=== PATIENT | male | born 1970 | race Caucasian/White ===

== ENCOUNTER 2017-03-10 10:08 | Inpatient (IN) | payer BC, OTHER ==
[2017-03-04 08:48] VITALS: BMI 31.0
--- NOTE | 2017-03-04 09:35 | PAT Medication Instructions ---
Service Date Mar 04, 2017. Current Home Medication List Acetaminophen (Tylenol Arthritis Ext Rel), 650 MG PO Q8H PRN for Pain Ranitidine Hcl (Zantac), 150 MG PO BID Medication Instructions For Your Scheduled Surgery - Take the following medications the morning of surgery with a sip of water: Acetaminophen (Tylenol Arthritis Ext Rel), 650 MG PO Q8H PRN for Pain (if needed) Ranitidine Hcl (Zantac), 150 MG PO BID - Take the following medications as scheduled the night before surgery: Acetaminophen (Tylenol Arthritis Ext Rel), 650 MG PO Q8H PRN for Pain Ranitidine Hcl (Zantac), 150 MG PO BID If you have any questions please call us at [phone] or [phone] ( [place]) or [phone]
--- NOTE | 2017-03-04 10:24 | DIAGNOSTIC IMAGING REPORT ---
TWO VIEW CHEST CLINICAL HISTORY: Preoperative examination. FINDINGS: PA and lateral chest radiographs are compared to study dated 01/14/2007. The cardiomediastinal silhouette is unremarkable. Chronic scarring is again seen at the left lung base. The lungs and pleural spaces are otherwise clear. There is no pneumothorax. The bony thorax appears intact. IMPRESSION: No active disease in the chest. Electronically signed by: Jc Chowdary M.D. 03/04/2017 10:23 AM Dictated Date/Time: 03/04/2017 10:22 AM
[2017-03-04 10:42] LABS: BASO % 0.4 %; BASO ABS # 0.03 K/uL (0-0.2); COMPLETE YES; HEMATOCRIT 47.3 % (42-52); IG% 0.3 %; LYMPH % 26.9 %; LYMPH ABS # 1.95 K/uL (1.2-3.4); MEAN CELL VOLUME 88.7 fL (80-100); MEAN CORPUSCULAR HEMOGLOBIN 30.6 pg (25-34); MEAN CORPUSCULAR HGB CONC 34.5 g/dl (32-36); MEAN PLATELET VOLUME 9.5 fL (7.4-10.4); MONO % 8.4 %; PLATELET COUNT 231 K/uL (130-400); RED BLOOD COUNT 5.33 M/uL (4.7-6.1); WHITE BLOOD COUNT 7.25 K/uL (4.8-10.8)
[2017-03-04 10:50] LABS: INR 1.1 (0.9-1.1); PARTIAL THROMBOPLASTIN RATIO 1.2; PROTHROMBIN TIME (PATIENT) 11.3 SECONDS (9.0-12.0)
[2017-03-04 10:57] LABS: BUN/CREATININE RATIO 29.9 (10-20); CREATININE 0.68 mg/dl (0.60-1.40); POTASSIUM 3.7 mmol/L (3.5-5.1)
[2017-03-04 11:00] LABS: CALCIUM 9.4 mg/dl (8.5-10.1)
--- NOTE | 2017-03-06 10:31 | HISTORY & PHYSICAL EXAMINATION ---
DATE OF ADMISSION: 03/10/2017 CHIEF COMPLAINT: Left hip pain and discomfort, stiffness. HISTORY OF PRESENT ILLNESS: The patient is a 47-year-old gentleman from [place] who works as a cook at [employer] who presents for surgical treatment of his left hip. He has a 1-year history of markedly increased left hip pain and discomfort. He has been treated by Dr. Guevara. He has had different medicines as well as injections which provided very temporary relief. He eventually went to [facility]. He was referred to [facility] for possible treatments, but elected to come to [place] for surgical treatment. He describes mostly groin and thigh pain. It radiates to the medial side of his knee. He has trouble doing his job as a cook due to the pain. He cannot put his shoes and socks on. He would like to have his hip replaced. PAST MEDICAL HISTORY: Significant for: 1. Heart murmur. 2. Sleep apnea. 3. Anxiety/depression. 4. Arthritis. 5. Gastroesophageal reflux disease. 6. Obesity, BMI 31. PREVIOUS SURGICAL HISTORY: Include: 1. Double hernia repair. 2. Hydrocele repair. 3. Foot surgery. 4. Right arm surgery. ALLERGIES: CODEINE. REACTION IS UNKNOWN. CURRENT MEDICINES: Include: 1. Meloxicam. 2. Tylenol Arthritis. 3. Jesus Manuel Aspirin. SOCIAL HISTORY: A 47-year-old male from [place]. He is single but has a significant other. He works as a cook. FAMILY HISTORY: Noncontributory. REVIEW OF SYSTEMS: Negative for diabetes, neurologic problems, vascular problems or bleeding disorders. Denies any chest pain or shortness of breath. His medical doctor is Dr. Conner with [facility]. PHYSICAL EXAMINATION: GENERAL: Reveals a pleasant, middle-aged male. He looks to be in reasonably good health. HEAD, EYES, EARS, NOSE, AND THROAT EXAMINATION: Benign. NECK: Supple. No lymphadenopathy. LUNGS: Clear to auscultation. HEART: Has a regular rate and rhythm. ABDOMEN: Soft, nontender, nondistended. EXTREMITY EXAMINATION: Grossly neurovascularly intact except as follows: Examination of left hip and leg reveals the patient walks with antalgic gait. Leg lengths clinically appear pretty equal. Internal rotation to -10. He has got an external rotation contracture. He can externally rotate to about 20. Negative straight leg raise. X-RAYS: X-rays of the left hip were reviewed. It shows advanced left hip DJD. He has got complete loss of the superior joint space. He has got flattening of his femoral head. He has got cystic change in the femoral head and fairly large medial osteophyte. He has got some mild to moderate degenerative change on the right side. X-rays of the left knee from [facility] were reviewed and are normal. ASSESSMENT: A 47-year-old male with advanced left hip degenerative joint disease. It has gotten significantly worse over the past year and really limiting his ability to live an active lifestyle and even work. PLAN: We talked about treatment. He would like to have his left hip replaced. We are going to take him to the operating room and do a left total hip replacement. The risks and benefits of this procedure were explained to the patient including but not limited to DVT, PE, , infection, neurological injury, vascular injury, bleeding problems, pain, limited range of motion, stiffness, failure to relieve symptoms, incomplete relief of symptoms, need for further surgery in the future, fracture, leg length inequality, nerve palsy, dislocation and need for revision. The patient understands and desires to proceed. Informed consent was obtained. The patient did have a preoperative workup. Labs were all normal. The EKG showed sinus bradycardia with an incomplete right bundle branch block. Chest x-ray was normal. We will proceed as above. He is planning to be discharged to home using [facility] home health program.
[~2017-03-10] VITALS: Ht 188 cm; Wt 109.5 kg
[2017-03-10] VITALS (8 sets, daily range): BP systolic 96–128; BP diastolic 63–91; PULSE 64–79; TEMP 36.3–37.1; O2SAT 98–100; Ht 188 cm; Wt 109.5 kg
[~2017-03-10 10:08] MED LIST: ACET1TAB84 PO; ACETAMINOPHEN 500 MG TAB PO SCH; BUPIVACAINE 0.5 % 5 MG/1 ML PF 10ML VIAL ONE; CEFAZOLIN 2000 MG/60 ML D5W 60 ML IV SCH; FAMOTIDINE 20 MG TAB PO SCH; GABAPENTIN 300 MG CAP PO SCH; LACTATED RINGER'S 1000ML 1,000 ML IV SCH; LACTATED RINGER'S 1000ML 500 ML IV ONE; LACTATED RINGER'S 1000ML IV SCH; METOCLOPRAMIDE HCL 10 MG TAB PO SCH; RANI150T3 PO; SCOPOLAMINE 1.5 MG TDSY TD SCH; TRANEXAMIC ACID INJ 1,000 MG in SODIUM CHLORIDE 0.9% 100ML 100 ML IV SCH
[2017-03-10] MEDS ORDERED: EpHEDrine SULFATE INJ 50 MG/ML AMP IV PRN (11:00)
[2017-03-10] MEDS ORDERED: FENTANYL CITRATE INJ 50 MCG/1 ML 2 ML VIAL IV PRN (11:00)
[2017-03-10] MEDS ORDERED: ATROPINE SULFATE 0.1 MG/ML 5ML SYR IV PRN (11:00)
[2017-03-10] MEDS ORDERED: ONDANSETRON INJ 2 MG/ML 2 ML VIAL IV PRN ×2 (11:00→13:45)
--- NOTE | 2017-03-10 11:01 | History & Physical Bridge Note ---
H&P Re-Evaluation Bridge Note: I have examined the patient, reviewed the History & Physical and in the interval since the performance of the History & Physical I have noted the following changes of clinical significance: No changes noted
[2017-03-10] MEDS ORDERED: BACITRACIN 50000 UNIT VIAL ONE (11:14)
[2017-03-10] MEDS ORDERED: BUPIVACAINE/EPINEPHRINE 0.5% MPF 1:200,000 30 ML VIAL ONE (11:14)
[2017-03-10] MEDS ORDERED: MIDAZOLAM HCL 1 MG/ML 2ML VIAL ONE ×2 (11:30→12:01)
[2017-03-10] MEDS ORDERED: LIDOCAINE HCL 2% 2 ML VIAL (20MG/ML) ONE (11:30)
[2017-03-10] MEDS ORDERED: PROPOFOL IV EMULSION 10 MG/ML 20 ML VIAL IV ONE (11:30)
[2017-03-10] MEDS ORDERED: FENTANYL CITRATE INJ 50 MCG/1 ML 2 ML VIAL ONE (11:30)
[2017-03-10] MEDS ORDERED: EpHEDrine SULFATE INJ 50 MG/ML AMP ONE (12:20)
[2017-03-10] MEDS ORDERED: EpHEDrine SULFATE 50MG/5ML SYR ONE (12:20)
[2017-03-10] MEDS ORDERED: PHENYLEPHRINE 100MCG/ML 5ML SYR ONE (13:20)
--- NOTE | 2017-03-10 13:39 | [facility] Post Operative Brief Note ---
Immediate Operative Summary Operative Date March 10, 2017. Pre-Operative Diagnosis Left Hip Degenerative Joint Disease Post-Operative Diagnosis Same as preop Procedure(s) Performed Left total hip arthroplasty uncemented Surgeon Dr. Washington Weigher And Crusher Surgeon(s) Wenceslao Cain PA-C Estimated Blood Loss 400 ml Findings Left Hip DJD Fluids (cc crystalloids) 1700 cc Specimens A. Left Femoral Head Drains None Anesthesia Spinal Complication(s) None Disposition Recovery Room / PACU
[2017-03-10] MEDS ORDERED: METOCLOPRAMIDE HCL INJ 5 MG/ML 2 ML VIAL IV PRN (13:45)
[2017-03-10] MEDS ORDERED: ZOLPIDEM TARTRATE 5 MG TAB PO PRN (13:45)
[2017-03-10] MEDS ORDERED: ALUMINUM/MAGNESIUM/SIMETH (MAALOX MAX) 30 ML UDC PO PRN (13:45)
[2017-03-10] MEDS ORDERED: BISACODYL 10 MG SUPP PR PRN (13:45)
[2017-03-10] MEDS ORDERED: TAMSULOSIN HCL 0.4 MG CAP PO PRN (13:45)
[2017-03-10] MEDS ORDERED: SILVER SULFADIAZINE 1% CR 50 GM JAR EXT PRN (13:45)
[2017-03-10] MEDS ORDERED: MAGNESIUM HYDROXIDE SUSP 30 ML UDC PO PRN (13:45)
[2017-03-10] MEDS ORDERED: DiphenhydrAMINE HCL 50 MG/ML VIAL IV PRN (13:45)
[2017-03-10] MEDS ORDERED: HYDROmorphone INJ 0.5 MG/0.5 ML SYR IV PRN (13:45)
--- NOTE | 2017-03-10 13:51 | Progress Note ---
Progress Note Date of Service March 10, 2017. Progress Note Pt here for L NAE - challenging wu placement secondary to prior hypospadias repair and stricture disease - I probed the urethra with a 6F urethral catheter and successfully guided this into the bladder - a wire was subsequently placed prior to sequential dilation with S-Curve dilators from 10F - 20F - clear urine returned with each pass - stricture felt to be more dense near the base - 16F councill tip catheter then inserted over the wire, initial point of resistance in the mid penile shaft (likely from hypospadias repair) with further (lesser) resistance in the bulb. - clear urine returned - will cover with abx for several days, voiding trial in 48hrs
--- NOTE | 2017-03-10 14:18 | DIAGNOSTIC IMAGING REPORT ---
AP PELVIS AND LEFT HIP 2 VIEWS CLINICAL HISTORY: Degenerative arthritis COMPARISON STUDY: No previous studies for comparison. FINDINGS: There is indwelling Roche catheter. There are postsurgical changes of a total left hip arthroplasty. The acetabular femoral components appear well seated. There are no fractures or dislocations. There is air within soft tissues consistent with recent surgery. There are overlying skin thomas. There are mild osteoarthritic changes within the right hip. IMPRESSION: Postsurgical changes of total left hip arthroplasty. Electronically signed by: David Wiggins M.D. 03/10/2017 2:17 PM Dictated Date/Time: 03/10/2017 2:16 PM
--- NOTE | 2017-03-10 14:33 | Anesthesiology Progress Note ---
Anesthesia Post Op Note Date & Time March 10, 2017 at 14:33 Vital Signs Pain Intensity: 0 Vital Signs Past 12 Hours Date Time Temp Pulse Resp B/P Pulse Ox O2 Delivery O2 Flow Rate FiO2 03/10/17 14:25 36.7 80 16 99/63 99 Nasal Cannula 2 03/10/17 14:15 64 16 102/62 99 Nasal Cannula 2 03/10/17 14:05 71 16 100/64 99 Nasal Cannula 2 03/10/17 13:56 36.6 82 16 119/68 100 Nasal Cannula 2 03/10/17 10:47 36.6 71 20 128/91 98 Room Air Notes Mental Status: alert / awake / arousable, participated in evaluation Pt Amnestic to Procedure: Yes Nausea / Vomiting: adequately controlled Pain: adequately controlled Airway Patency, RR, SpO2: stable & adequate BP & HR: stable & adequate Hydration State: stable & adequate Neuraxial Anesthesia: was administered, sensory block is resolving Anesthetic Complications: no major complications apparent
--- NOTE | 2017-03-10 14:59 | OPERATIVE REPORT ---
DATE OF OPERATION: 03/10/2017 SURGEON: Himanshu Washington MD SPECIAL DUTY NURSE: LOREN Gore PREOPERATIVE DIAGNOSIS: Left hip degenerative joint disease. POSTOPERATIVE DIAGNOSIS: Same. PROCEDURE PERFORMED: Left uncemented ceramic on highly cross-linked polyethylene total hip arthroplasty. COMPLICATIONS: None. ESTIMATED BLOOD LOSS: 400 mL. FLUID REPLACEMENT: 1700 mL crystalloid fluid replacement. ANESTHESIA: Spinal. DRAINS: None. SPECIMENS: Left femoral head sent for pathology. OPERATIVE INDICATIONS: The patient is a 47-year-old gentleman who has had a year history of markedly increasing and progressive discomfort in his left hip. He has been through extensive conservative treatment without adequate relief. This really was affecting his quality of life. X-rays show advanced hip DJD with marked progression over the past year. He elected to proceed with total hip arthroplasty. OPERATIVE FINDINGS: Operative findings revealed advanced left hip DJD. He had moderate size joint effusion. He had grade 4 [id number] disease of the femoral head and acetabulum. OPERATIVE IMPLANTS: Operative implants consisted of: 1. A Biomet G7 size 54-mm acetabular shell. 2. An apex hole eliminator. 3. A 6.5 cancellous acetabular screws, one of 35 mm length and one at 30 mm length. 4. Highly cross-linked polyethylene liner with a 54 mm outer diameter and 36 mm inner diameter. 5. A DePuy size 15 small stature AML femoral stem. 6. A +5/36 mm ceramic articular ball. OPERATIVE PROCEDURE: The patient was taken to the operating room, identified and placed on the operating table in the supine position. All contact areas were appropriately padded. IV antibiotics were provided by the anesthesia team. A spinal anesthetic had been implemented in the holding area. We attempted to place a Roche catheter, but unable to do so. We tried the smallest catheter available without success. Therefore, we consulted urology and they elected to address this at the end of the case. The patient was then placed in the right lateral decubitus position. An axillary roll was placed. Stulberg hip positioner was used for positioning. The patient got preoperative antibiotics. A left hip and leg were then prepped and draped in the usual sterile fashion. A posterolateral approach to the left hip was then performed through a curvilinear incision centered over the greater trochanter. Sharp dissection was carried out through the subcutaneous tissue down to the level of the IT band and gluteal fascia. The IT band and gluteal fascia were incised longitudinally in line with skin incision. The underlying greater trochanteric bursa was excised. The piriformis and external rotators were tagged and taken off the posterior aspect of the hip joint capsule. Great care was taken throughout the procedure to protect the sciatic nerve at all times. Posterior capsulotomy was then performed leaving a large flap for later repair. Hip was internally rotated and dislocated. Femoral neck osteotomy cut was made with the final cut about 10 mm above the lesser trochanter. Femoral head was removed and sent for pathology. The femur was retracted anteriorly. Attention was then drawn to the acetabulum. The acetabular labrum was excised. The pulvinar fat was excised. Sequential reaming of the acetabulum was then performed beginning with a size 45 and progressing up to a 53. A 54-mm Biomet G7 acetabular shell was then placed in about 45 degrees of lateral opening and 20 degrees of anteversion. It was fixed with two 6.5 cancellous acetabular screws. I did remove some anterior acetabular osteophytes. A trial liner was placed. Attention was then drawn to the femur. The proximal femur was entered with cookie cutter followed by canal finder and lateralizing reamer. Sequential reaming of the femur was then performed beginning with a size 10 and progressing up to a 14.5. We got pretty good chatter at 14.5. I broached beginning with a size 10.5 small broach and progressing up to a 15 small. We had trouble getting a 15 small down. Therefore, we elected not to not go to large. A calcar reamer was used to smoothen off the calcar. We then trialed the hip and a +5/36 mm articular ball provided full stability in full extension and external rotation, flexion to 90 degrees, and internal rotation to 50+ degrees. Leg lengths appeared equal. Attention was then drawn toward placing these implants. All trial implants were removed. An apex hole eliminator was placed. Highly cross-linked polyethylene liner was placed. A 15 small stature AML femoral stem was placed. I did ream partway down the canal with a 15 reamer as it was extremely tight on initial implantation. A +5/36 mm ceramic articular ball was placed. Hip was located and once again found to be stable. The wound was irrigated with copious amounts of pulsatile lavage solution. I did inject locally with 30 mL of 0.5% Marcaine with epinephrine. The posterior capsule and external rotators were then repaired through drill holes in the posterior trochanter with #2 Ti-Cron suture. The IT band and gluteal fascia were then closed with #1 PDS suture in running fashion. The subcutaneous tissues were then closed with 2 layers with the deep layer in #1 Vicryl suture and the subcutaneous tissue with 2-0 Dexon suture in a buried interrupted fashion. The skin was closed with skin thomas. Leg was then cleaned and dried and a sterile dressing with Xeroform, 4 x 4, sterile ABD pad and foam tape were applied. The patient was then placed in supine position. Urology/Dr. Adkins then came in and placed a Roche catheter. Once this was placed, the patient was then transferred to the recovery room in stable condition. The patient tolerated the procedure well with no complications. All needle and sponge counts were correct at the end of our operation. The urology procedure will be dictated separately by Dr. Adkins. I attest to the content of the Intraoperative Record and any orders documented therein. Any exceptions are noted below. JOHN
[2017-03-10] MEDS: D5W AND 1/2NSS + 20MEQ KCL 1,000 ML IV SCH ×2 (16:36→23:30)
[2017-03-10] MEDS: CHECK SCOPOLAMINE PATCH PLACEMENT SCH ×2 (16:37→23:38)
[2017-03-10] MEDS: FERROUS GLUCONATE 324 MG TAB PO SCH (17:58)
[2017-03-10] MEDS: KETOROLAC TROMETHAMINE 30 MG/ML VIAL IV. SCH ×2 (17:59→23:30)
[2017-03-10] MEDS ORDERED: NURSING VERBAL MED ORDER ONE (19:45)
[2017-03-10] MEDS: HYDROmorphone INJ 1 MG/ML SYR IV PRN ×2 (20:00→23:33)
[2017-03-10] MEDS ORDERED: TRANEXAMIC ACID INJ 1,000 MG in SODIUM CHLORIDE 0.9% 100ML 100 ML IV ONE (20:00)
[2017-03-10] MEDS: ACETAMINOPHEN 500 MG TAB PO SCH (20:02)
[2017-03-10] MEDS: CEFAZOLIN IV 2,000 MG in DEXTROSE 5% 50ML 50 ML IV SCH (20:54)
[2017-03-10] MEDS: TAPENTADOL ER 50 MG TABCR PO SCH (20:55)
[2017-03-10] MEDS: NITROFURANTOIN MONOHYDRATE 100 MG CAP PO SCH (20:56)
[2017-03-10] MEDS: RANITIDINE HCL 150 MG TAB PO SCH (20:56)
[2017-03-10] MEDS: ASPIRIN 325 MG ECTAB PO SCH (20:56)
[2017-03-10] MEDS: DOCUSATE SODIUM 100 MG CAP PO SCH (20:57)
[2017-03-11] VITALS (7 sets, daily range): BP systolic 95–112; BP diastolic 56–63; PULSE 70–78; TEMP 36.4–37; O2SAT 96–98
[2017-03-11] MEDS: CEFAZOLIN IV 2,000 MG in DEXTROSE 5% 50ML 50 ML IV SCH (03:18)
[2017-03-11] MEDS: HYDROmorphone INJ 1 MG/ML SYR IV PRN ×3 (03:19→15:33)
[2017-03-11] MEDS: ACETAMINOPHEN 500 MG TAB PO SCH ×3 (05:37→21:24)
[2017-03-11] MEDS: KETOROLAC TROMETHAMINE 30 MG/ML VIAL IV. SCH ×3 (05:38→17:49)
[2017-03-11] MEDS: D5W AND 1/2NSS + 20MEQ KCL 1,000 ML IV SCH ×2 (05:38→10:13)
[2017-03-11 06:37] LABS: BASO % 0.1 %; BASO ABS # 0.01 K/uL (0-0.2); COMPLETE YES; EOS % 0.1 %; HEMATOCRIT 36.5 % (42-52); IG% 0.1 %; LYMPH % 11.1 %; LYMPH ABS # 0.94 K/uL (1.2-3.4); MEAN CELL VOLUME 89.7 fL (80-100); MEAN CORPUSCULAR HGB CONC 34.5 g/dl (32-36); MONO % 8.6 %; PLATELET COUNT 169 K/uL (130-400); RED BLOOD COUNT 4.07 M/uL (4.7-6.1); WHITE BLOOD COUNT 8.47 K/uL (4.8-10.8)
[2017-03-11 07:08] LABS: BUN/CREATININE RATIO 14.5 (10-20); CALCIUM 8.2 mg/dl (8.5-10.1); CREATININE 0.79 mg/dl (0.60-1.40); POTASSIUM 3.6 mmol/L (3.5-5.1)
[2017-03-11] MEDS: CHECK SCOPOLAMINE PATCH PLACEMENT SCH ×2 (07:36→15:33)
--- NOTE | 2017-03-11 08:03 | PROGRESS NOTE ---
DATE: 03/11/2017 DATE: 03/11/2017. SUBJECTIVE: A 47-year-old gentleman postop day 1 from a left total hip replacement. Pretty painful night but doing better this morning. No chest pain or shortness of breath. Not feeling dizzy or lightheaded. OBJECTIVE: VITAL SIGNS: Temperature 36.7. Vital signs stable. PHYSICAL EXAMINATION: GENERAL: This is a healthy, pleasant, middle-aged male. He is lying in bed, looks pretty comfortable. EXTREMITIES: Examination of left hip reveals the leg to be well aligned. Hip is located. His thigh is soft and supple. Dressing is clean, dry, and intact. He can dorsiflex and plantarflex his foot appropriately. LABORATORY DATA: Hemoglobin 12.6. Hematocrit 36.5. Electrolytes are stable. ASSESSMENT: A 47-year-old gentleman postop day 1 from left total hip replacement, doing pretty well. Pretty painful last night, but doing better this morning. His hip is located. He is neurologically intact. PLAN: 1. DVT prophylaxis including thigh-high TEDs, SCDs, and aspirin twice a day. 2. PT/OT. Weightbearing as tolerated. Left total hip protocol. 3. Pain control. Doing pretty well with current pain regimen. 4. Disposition. He is hoping to be discharged to home with some home health once adequately recovered.
--- NOTE | 2017-03-11 08:14 | Progress Note ---
Progress Note Date of Service March 11, 2017. Progress Note Tolerating catheter well today urine clear mild L testicular pain appropriate hip related discomfort plan for voiding trial tomorrow AM - covered with nitrofurantoin now, likely for 24 additional hours after wu dc
[2017-03-11] MEDS: FERROUS GLUCONATE 324 MG TAB PO SCH ×3 (08:33→17:49)
[2017-03-11] MEDS: RANITIDINE HCL 150 MG TAB PO SCH ×2 (08:33→21:25)
[2017-03-11] MEDS: ASPIRIN 325 MG ECTAB PO SCH ×2 (08:33→21:25)
[2017-03-11] MEDS: MULTIVITAMIN TAB PO SCH (08:33)
[2017-03-11] MEDS: DOCUSATE SODIUM 100 MG CAP PO SCH ×2 (08:34→21:25)
[2017-03-11] MEDS: NITROFURANTOIN MONOHYDRATE 100 MG CAP PO SCH (08:34)
[2017-03-11] MEDS: TAPENTADOL ER 50 MG TABCR PO SCH ×2 (08:34→21:24)
[2017-03-11] MEDS: HYDROmorphone HCL 2 MG TAB PO PRN (08:34)
[2017-03-11] MEDS: PANTOprazole SOD 40 MG TAB PO SCH (08:34)
--- NOTE | 2017-03-11 10:44 | Anesthesiology Progress Note ---
Anesthesia Post Op Note Date & Time March 11, 2017 at 10:44 Vital Signs Vital Signs Past 12 Hours Date Time Temp Pulse Resp B/P Pulse Ox O2 Delivery O2 Flow Rate FiO2 03/11/17 07:58 36.4 78 18 112/60 96 Room Air 03/11/17 07:41 Room Air 03/11/17 07:26 36.7 77 20 95/59 98 Room Air 03/11/17 03:05 37.0 73 20 95/60 97 Room Air 03/10/17 23:45 Room Air 03/10/17 23:33 37.1 79 18 105/65 99 Room Air Notes Mental Status: alert / awake / arousable, participated in evaluation Pt Amnestic to Procedure: Yes Nausea / Vomiting: adequately controlled Pain: adequately controlled Airway Patency, RR, SpO2: stable & adequate BP & HR: stable & adequate Hydration State: stable & adequate Neuraxial Anesthesia: sensory block resolved Anesthetic Complications: no major complications apparent
[2017-03-11] MEDS ORDERED: HYDR2TAB3 PO (21:26)
[2017-03-11] MEDS ORDERED: ACET-1138 PO (21:26)
[2017-03-11] MEDS ORDERED: ASPEC325 PO (21:26)
--- NOTE | 2017-03-11 21:29 | Discharge Instructions ---
Discharge Instructions Date of Service March 11, 2017. Admission Reason for Admission: Left Hip Degenerative Joint Disease Discharge Discharge Diagnosis / Problem: Left Hip Replacement Discharge Goals Goal(s): Decrease discomfort, Improve function, Increase independence, Improve disease control, Therapeutic intervention Activity Recommendations Activity Limitations: per Instructions/Follow-up section (Total Hip Precautions ) Weightbearing Status: Left weightbearing . Instructions / Follow-Up Instructions / Follow-Up ACTIVITY RECOMMENDATIONS: Physical Therapy: * Aggressive physical therapy is not usually needed. You will learn to take care of yourself safely and walk. * Follow the "Hip Precautions Instructions." * In some cases, the psychosocial rehabilitation counselor at the hospital will arrange to have a therapist come to your house for the first couple of weeks to help you learn these skills. * You need to practice on your own or with the help of a family member as needed. * When you learn these skills, most of the therapy can be done on your own. Home Exercise: * You were shown a series of exercises in the hospital. Do these exercises three to four times each day including the exercises you were shown in physical therapy. Walking: * Get up and walk several times each day. For the first four weeks, try not to stand or walk for more than one hour at a time. If you do stand or walk for more than one hour, you will not hurt anything, but your leg will likely swell. * As you feel comfortable, you may change from the walker or crutches to a cane and then to independent walking. MEDICATIONS: New Medicine: * You will likely be taking one or more of these medicines: 1. Dilaudid - Take, as directed, when you need it, every four to six hours to control your pain. 2. Aspirin - Thins your blood to lessen the chance of forming a blood clot. * The most common side effects of pain medicine and iron are nausea and constipation. If nausea or constipation is too much of a problem or if you have any questions about your new medicines or doses, call [facility] at . We will try to help you manage these issues. VERY IMPORTANT TO READ AND REVIEW" Pain: * The immediate post-operative period after hip replacement surgery is often quite painful. * You are given a prescription for pain medicine. You should take it, as directed, when you need it, especially before physical therapy and before going to bed. Pain that interferes with sleep is very common and can last several months. * You will likely need pain medicine for the first two to four weeks. It will not stop all of the pain. The pain will lessen and as you feel better, you may change to milder pain medicine such as Tylenol. * The most common side effects of pain medicine are nausea and constipation, so don't take more than you need. SPECIAL CARE INSTRUCTIONS: TEDs/Elastic Stockings: * The white elastic stockings help limit swelling and prevent blood clots from forming in your legs. The more you wear them, the more they work. * Wear them for six weeks. Prevention of Infection: * Take antibiotics one hour before any dental cleaning, dental work, urological procedure, gastrointestinal procedure or any invasive surgery in order to prevent your new joint from getting infected. * You may get the antibiotics from the doctor performing the procedure or you may call our office at before and we will call in a prescription to the pharmacy of your choice. Things to Watch For: * Drainage from the incision site that occurs more than one week after your surgery. * Severely increased leg pain or swelling. * Increased redness at the incision site. * Fever above 102 degrees Fahrenheit. * Unusual chest pain or shortness of breath. * Unusual pain or burning with urination. Call [facility] at with any of the above problems or if you have any questions about your medicines or recovery. FOLLOW UP VISIT: Make an appointment to see your doctor for approximately two weeks after surgery for a progress check and staple removal by calling the office at . Current Hospital Diet Patient's current hospital diet: Regular Diet Discharge Diet Recommended Diet: Regular Diet Procedures Procedures Performed: Left total hip arthroplasty uncemented; Urethral dilation with catheter placement Pending Studies Studies pending at discharge: no Medical Emergencies . Who to Call and When: Medical Emergencies: If at any time you feel your situation is an emergency, please call [phone] immediately. . Non-Emergent Contact Non-Emergency issues call your: Surgeon . "Provider Documentation" section prepared by Himanshu Washington. . VTE Core Measure Inpt VTE Proph given/why not?: Other Anticoagulation, T.E.D. Stockings, SCD's
[2017-03-12] MEDS: KETOROLAC TROMETHAMINE 30 MG/ML VIAL IV. SCH ×3 (00:30→13:10)
[2017-03-12] MEDS: CHECK SCOPOLAMINE PATCH PLACEMENT SCH ×4 (00:31→07:02)
[2017-03-12] MEDS: ACETAMINOPHEN 500 MG TAB PO SCH ×3 (05:42→21:29)
[2017-03-12 07:06] VITALS: BP 107/77; PULSE 76; TEMP 36.6; O2SAT 97
[2017-03-12] MEDS: FERROUS GLUCONATE 324 MG TAB PO SCH ×3 (08:09→17:44)
[2017-03-12] MEDS: MULTIVITAMIN TAB PO SCH (08:09)
[2017-03-12] MEDS: PANTOprazole SOD 40 MG TAB PO SCH (08:10)
[2017-03-12] MEDS: TAPENTADOL ER 50 MG TABCR PO SCH ×2 (08:16→21:29)
[2017-03-12] MEDS: DOCUSATE SODIUM 100 MG CAP PO SCH ×2 (09:38→21:27)
[2017-03-12] MEDS: ASPIRIN 325 MG ECTAB PO SCH ×2 (09:38→21:27)
[2017-03-12] MEDS: RANITIDINE HCL 150 MG TAB PO SCH ×2 (09:38→21:26)
--- NOTE | 2017-03-12 09:55 | Progress Note ---
Progress Note Date of Service March 12, 2017. Progress Note 47 year old male s/p left hip replacement. Ok to d/c wu this am. If unable to void reinsert wu. Teach cath care and we would plan for TOV in 7 -10 days in office. We will follow up with pt in office. Thank you for allowing us to participate in this pt's care.
--- NOTE | 2017-03-12 10:04 | PROGRESS NOTE ---
DATE: 03/12/2017 SUBJECTIVE: A 47-year-old gentleman postop day 2 from a left total hip replacement. He is doing better. The pain seems to be better. Nurys night last night. No chest pain or shortness of breath. Not feeling dizzy or lightheaded. OBJECTIVE: VITAL SIGNS: Temperature is 36.6. Vital signs stable. PHYSICAL EXAMINATION: GENERAL: Reveals a healthy, pleasant, middle-aged male. He is lying in bed this morning when I saw him and looks pretty comfortable. LUNGS: Clear to auscultation. HEART: Regular rate and rhythm. ABDOMEN: Soft, nontender, and nondistended. EXTREMITIES: Grossly neurovascularly intact except as follows: Examination of the left hip reveals the leg to be well aligned. Hip is located. He can dorsiflex and plantarflex his foot appropriately. His thigh is soft and supple. Dressing is clean, dry, and intact. He is neurologically intact. ASSESSMENT: A 47-year-old gentleman postop day 2 from left total hip replacement, doing pretty well. Pain is under reasonable control. PLAN: 1. DVT prophylaxis including thigh-high TEDs, SCDs, and aspirin twice a day. 2. PT/OT. Weightbearing as tolerated. Left total hip protocol. 3. Pain control, doing well with current pain regimen. 4. Disposition: Plan to discharge to home with home health and therapy today. 5. Roche catheter. I will let Dr. Adknis manage that. I think the plan is to remove that today and as long as he voids, he should be okay. Any further directions are per Dr. Adkins.
[2017-03-12] MEDS: HYDROmorphone HCL 2 MG TAB PO PRN ×2 (10:29→16:50)
[2017-03-12 12:27] VITALS: BP 132/78; PULSE 92; TEMP 36.6; O2SAT 97
[2017-03-12] MEDS ORDERED: ACETAMINOPHEN 500 MG TAB PO ONE (13:08)
[2017-03-12 14:51] VITALS: BP 103/67; PULSE 84; TEMP 36.8; O2SAT 98
--- NOTE | 2017-03-12 22:29 | PROGRESS NOTE ---
DATE: 03/12/2017 SUBJECTIVE: Sonny is a 47-year-old gentleman, now postop day #2 from a left total hip replacement. We were planning on discharging him today. He was apparently in the bathroom this afternoon and had a shaking episode, which lasted may be a couple of minutes. He is not exactly sure why. He denies any chest pain or shortness of breath. It has resolved. He just kind of feels unsteady and not ready to go home. His pain is reasonably well-controlled. PHYSICAL EXAMINATION: I did examine him this afternoon. The exam is pretty benign. His hip incision is well-approximated. There is no drainage. His thigh is soft and supple. He is neurologically intact. ASSESSMENT: Two days out from a left total hip replacement, doing reasonably well. He had this one episode of some shaking chills, of unclear etiology, passed and was fairly fleeting. He really wants to stay overnight and we will keep him overnight. We will get him therapy tomorrow. If things go okay, we will discharge him then. JOHN
[2017-03-12 23:20] VITALS: BP 105/67; PULSE 86; TEMP 36.7; O2SAT 98
[2017-03-13] MEDS: HYDROmorphone HCL 2 MG TAB PO PRN ×2 (04:04→11:51)
[2017-03-13] MEDS: ACETAMINOPHEN 500 MG TAB PO SCH (05:48)
[2017-03-13 07:46] VITALS: BP 120/75; PULSE 76; TEMP 36.6; O2SAT 94
[2017-03-13] MEDS: ASPIRIN 325 MG ECTAB PO SCH (08:04)
[2017-03-13] MEDS: DOCUSATE SODIUM 100 MG CAP PO SCH (08:06)
[2017-03-13] MEDS: MULTIVITAMIN TAB PO SCH (08:06)
[2017-03-13] MEDS: RANITIDINE HCL 150 MG TAB PO SCH (08:06)
[2017-03-13] MEDS: FERROUS GLUCONATE 324 MG TAB PO SCH (08:07)
[2017-03-13] MEDS: PANTOprazole SOD 40 MG TAB PO SCH (08:07)
[2017-03-13] MEDS: TAPENTADOL ER 50 MG TABCR PO SCH (08:12)
--- NOTE | 2017-03-13 08:46 | PROGRESS NOTE ---
DATE: 03/13/2017 DATE: 03/13/2017. SUBJECTIVE: A 47-year-old gentleman postop day 3 from left total hip replacement, doing better this morning. He has already been up and around and walked up and down the hallways. Pain is controlled. Denies any chest pain or shortness of breath. No further shaking episodes. OBJECTIVE: VITAL SIGNS: Temperature 36.6. Vital signs stable. PHYSICAL EXAMINATION: GENERAL: Reveals a healthy, pleasant, middle-aged male. He is lying in bed and looks comfortable the scars. LUNGS: Clear to auscultation. HEART: Regular rate and rhythm. ABDOMEN: Soft, nontender, nondistended. EXTREMITY EXAMINATION: Grossly neurovascularly intact except as follows: Examination of the left leg reveals the dressing to be clean, dry and intact. His thigh is soft and supple. Hip is located. He is neurologically intact. ASSESSMENT: A 47-year-old gentleman postop day 3 from left total hip replacement, doing pretty well. He had one brief episode of some shakes yesterday of unclear etiology but this is resolved. I do not think there is any significance to this. He is doing well. His pain is controlled. PLAN: 1. DVT prophylaxis including thigh-high TEDs, SCDs, and aspirin twice a day. 2. PT/OT. Weightbearing as tolerated. Left total hip protocol. 3. Pain control. Doing reasonably well with current pain regimen. 4. Disposition. Plan to discharge to home with home health after therapy today.
[2017-03-13 09:22] VITALS: BP 120/75; PULSE 76; TEMP 36.6; O2SAT 94
[2017-03-13 10:10] VITALS: O2SAT 94
--- NOTE | 2017-03-18 01:30 | DISCHARGE SUMMARY ---
ADMITTING PHYSICIAN AND SURGEON: Dr. Washington. ADMITTING DIAGNOSIS: Left hip degenerative joint disease. SURGERY PERFORMED: Left total hip arthroplasty. SECONDARY DIAGNOSES: Include heart murmur, sleep apnea, anxiety, depression, arthritis, gastroesophageal reflux disease, obesity and difficulty placing a Roche catheter preoperatively. CONSULTS: Include Dr. Adkins for Roche catheter placement. HISTORY AND PHYSICAL EXAMINATION: Well documented in the patient's chart. HOSPITAL COURSE: The patient was admitted on 03/10/2017, underwent a total hip arthroplasty, and tolerated the procedure well. There were no complications. Some difficulty placing the Roche catheter preoperatively. Dr. Adkins was consulted for urology service, who was able to place a Roche catheter. He was transferred to PACU postoperatively and later to the orthopedic floor for further care. He was given nitrofurantoin as antibiotic due to the Roche catheter. He was also given Ancef for antibiotic prophylaxis, JOSE ROBERTO stockings, SCDs and aspirin for DVT prophylaxis. Hemoglobin, hematocrit and vital signs were monitored during his hospital stay and remained stable, did not require any blood transfusions. There were no complications. He had an episode of some shaking postop day 2, but this resolved. This was from an unclear etiology. By postoperative day 3, he was tolerating a general diet, pain was controlled with oral pain medicine. He was participating in physical therapy and had no signs or symptoms of deep vein thrombosis. On postoperative day 3, discharged home and set up with home health services. He was given printed discharge instructions including prescriptions for Extra Strength Tylenol, aspirin 325 mg b.i.d., hydromorphone, continue home medications which include Zantac, continue physical therapy, weightbearing as tolerated, JOSE ROBERTO stockings, follow up in 10-12 days or sooner if there are any problems or concerns. He was also given instructions to follow up with urology about a week postoperatively as well.
== END 2017-03-13 12:00 | disposition home health service (06) | DRG 470 ==
LOC: ENRESERVTM → ENRESERVDT → C.ACU 10:08 → C.3E 11:25
PROVIDERS: ADMIT Orthopaedic Surgery Sports Medicine; ATTEND Orthopaedic Surgery Sports Medicine
PROC: 0SRB04A Replacement of Left Hip Joint with Ceramic on Polyethylene Synthetic Substitute, Uncemented, Open Approach (ICD-10-PCS; principal; 2017-03-10 12:00)
PROC: 0THB73Z Insertion of Infusion Device into Bladder, Via Natural or Artificial Opening (ICD-10-PCS; principal; 2017-03-10 12:00)
DX: M16.12 Unilateral primary osteoarthritis, left hip (principal); F41.9 Anxiety disorder, unspecified; N35.8 Other urethral stricture; F32.9 Major depressive disorder, single episode, unspecified; K21.9 Gastro-esophageal reflux disease without esophagitis; E66.9 Obesity, unspecified; Z68.31 Body mass index [BMI] 31.0-31.9, adult